=== PATIENT | male | born 1980 | race Caucasian/White ===

== ENCOUNTER 2022-08-15 18:10 | Outpatient (CLI) | payer SELFPAY | END 2022-08-15 18:11 | disposition left against medical advice (07) | LOC: EMS 18:10 | DX: T59.811A Toxic effect of smoke, accidental (unintentional), initial encounter (principal); R05.9 Cough, unspecified; X00.1XXA Exposure to smoke in uncontrolled fire in building or structure, initial encounter ==

== ENCOUNTER 2023-06-12 19:09 | Outpatient (CLI) | payer OTHER, MEDICAID | END 2023-06-12 19:10 | disposition short-term general hospital (02) | LOC: EMS 19:09 | DX: S82.891A Other fracture of right lower leg, initial encounter for closed fracture (principal); S09.93XA Unspecified injury of face, initial encounter; Y04.8XXA Assault by other bodily force, initial encounter; Y92.59 Other trade areas as the place of occurrence of the external cause; R45.6 Violent behavior; Z78.1 Physical restraint status | CPT/HCPCS: A0425; A0427 ==

== ENCOUNTER 2023-06-23 20:01 | Outpatient (CLI) | payer MEDICAID | END 2023-06-23 20:02 | disposition critical access hospital (66) | LOC: EMS 20:01 | DX: T40.2X1A Poisoning by other opioids, accidental (unintentional), initial encounter (principal); R40.0 Somnolence; R11.0 Nausea; R09.89 Other specified symptoms and signs involving the circulatory and respiratory systems | CPT/HCPCS: A0425; A0427; A0999 ==

== ENCOUNTER 2023-06-24 18:12 | Outpatient (CLI) | payer MEDICAID | END 2023-06-24 23:59 | disposition left against medical advice (07) | LOC: EMS 18:12 | DX: R46.4 Slowness and poor responsiveness (principal) ==

== ENCOUNTER 2023-06-26 09:57 | Outpatient (CLI) | payer MEDICAID | END 2023-06-26 23:59 | disposition left against medical advice (07) | LOC: EMS 09:57 | DX: R46.4 Slowness and poor responsiveness (principal); R06.89 Other abnormalities of breathing ==

== ENCOUNTER 2023-08-19 15:04 | Emergency (ER) | payer MEDICAID ==
[2023-08-19 15:18] VITALS: BP 127/82; O2SAT 98
== END 2023-08-19 16:53 | disposition left against medical advice (07) ==
LOC: ED 15:04
DX: Z53.21 Procedure and treatment not carried out due to patient leaving prior to being seen by health care provider (principal)

== ENCOUNTER 2023-12-22 10:09 | Emergency (ER) | payer MEDICAID ==
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
[2023-12-22] MEDS: TRIAMCINOLONE 40 MG/ML VIAL MC STA (11:22)
--- NOTE | 2023-12-22 11:51 | XRAY Report ---
PROCEDURE: Elbow 3+V LT INDICATIONS: elbow pain after injury TECHNIQUE: 3 views of the elbow were acquired. COMPARISON: None. FINDINGS: Bones: Minimal degenerative changes. No acute displaced fracture. Soft tissues: No significant elbow joint effusion. IMPRESSION: No acute radiographic abnormality. If there is high concern for occult injury, consider repeat radiog yosvany or cross-sectional imaging. Reviewed by: Chava Hart MD on 12/22/2023 11:50 AM PDT Approved by: Chava Hart MD on 12/22/2023 11:50 AM PDT Station ID: [id number]
[2023-12-22 12:10] VITALS: BP 148/83; O2SAT 99
== END 2023-12-22 12:06 | disposition home or self-care (01) ==
LOC: ED 10:09
DX: M77.12 Lateral epicondylitis, left elbow (principal); Y04.2XXA Assault by strike against or bumped into by another person, initial encounter
CPT/HCPCS: 20600; 99284

== ENCOUNTER 2024-02-03 21:33 | Outpatient (CLI) | payer MEDICAID | END 2024-02-03 21:34 | disposition left against medical advice (07) | LOC: EMS 21:33 | DX: Z03.89 Encounter for observation for other suspected diseases and conditions ruled out (principal) ==

== ENCOUNTER 2024-02-04 08:11 | Outpatient (CLI) | payer MEDICAID | END 2024-02-04 23:59 | disposition critical access hospital (66) | LOC: EMS 08:11 | DX: R41.82 Altered mental status, unspecified (principal); R06.89 Other abnormalities of breathing; R23.0 Cyanosis; R11.10 Vomiting, unspecified; R61 Generalized hyperhidrosis; R00.0 Tachycardia, unspecified | CPT/HCPCS: A0425; A0433; A0999 ==

== ENCOUNTER 2024-02-04 08:41 | Inpatient (IN) | payer MEDICAID ==
[2024-02-04] MEDS ORDERED: NALOXONE 0.4 MG/ML VIAL ONE (08:47)
[2024-02-04] MEDS: NALOXONE 0.4 MG/ML VIAL IVP STA (08:50)
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
[2024-02-04] MEDS: SODIUM CHLORIDE 0.9% 1,000 ML IV STA (08:55)
[2024-02-04 09:00] LABS: BASOPHILS # (AUTO) 0.1 10^3/uL (0.0-0.1); BASOPHILS % (AUTO) 0.4 %; EOSINOPHILS # (AUTO) 0.1 10^3/uL (0.0-0.7); EOSINOPHILS % (AUTO) 0.6 %; HCT - HEMATOCRIT 49.6 % (42.0-52.0); HGB - HEMOGLOBIN 15.5 g/dL (14.0-18.0); LYMPHOCYTES # (AUTO) 1.5 10^3/uL (1.5-3.5); LYMPHOCYTES % (AUTO) 10.6 %; MEAN CORPUSCULAR HEMOGLOBIN 30.2 pg (27.0-31.0); MEAN CORPUSCULAR HGB CONC 31.3 g/dL (32.0-36.0); MEAN CORPUSCULAR VOLUME 96.7 fL (80.0-94.0); MEAN PLATELET VOLUME 9.7 fL (7.4-11.4); MONOCYTES # (AUTO) 0.2 10^3/uL (0.0-1.0); MONOCYTES % (AUTO) 1.1 %; NEUTROPHILS # (AUTO) 12.3 10^3/uL (1.5-6.6); NEUTROPHILS % (AUTO) 86.2 %; PLT - PLATELET COUNT 291 10^3/uL (130-450); RED BLOOD COUNT 5.13 10^6/uL (4.70-6.10); RED CELL DISTRIBUTION WIDTH 13.2 % (12.0-15.0); WHITE BLOOD COUNT 14.2 x10^3/uL (4.8-10.8)
--- NOTE | 2024-02-04 09:16 | XRAY Report ---
PROCEDURE: Chest 1V INDICATIONS: tube position TECHNIQUE: One view of the chest was acquired. COMPARISON: ET tube in satisfactory position.. FINDINGS: Surgical changes and devices: None. Lungs and pleura: Diffuse bilateral airspace consolidation. Mediastinum: Mediastinal contours appear normal. Cardiomegaly. Bones and chest wall: No suspicious bony lesions. Overlying soft tissues appear unremarkable. IMPRESSION: ET tube in satisfactory position. Congestive heart failure. Reviewed by: Sebastien Quezada MD on 02/04/2024 9:15 AM PDT Approved by: Sebastien Quezada MD on 02/04/2024 9:15 AM PDT Station ID: [id number]
[2024-02-04 09:17] LABS: ABG HCO3 24.2 mmol/L (22.0-26.0); ABG PO2 71 mmHg (80-100); ALLEN TEST POSITIVE
[2024-02-04 09:19] LABS: ABG PH 7.15 (7.35-7.45)
[2024-02-04 09:20] LABS: ABG MODE OF VENTILATION ASSIST/CONTROL; ABG OXYGEN SATURATION 86 % (94-98); ABG PCO2 69 mmHg (34-45); ABG RESPIRATORY RATE 16 b/min
[2024-02-04] MEDS: PROPOFOL 1000 MG/100 ML 1,000 MG/100 ML BOTTLE IV STA (09:21)
[2024-02-04 09:34] LABS: THYROID STIMULATING HORMONE 5.12 uIU/mL (0.34-5.60)
[2024-02-04] MEDS: FUROSEMIDE 40 MG/4 ML VIAL IVP STA (09:35)
[2024-02-04 09:36] LABS: MAGNESIUM 2.5 mg/dL (1.7-2.3)
[2024-02-04 09:39] LABS: BILIRUBIN,URINE NEGATIVE (NEGATIVE); GLUCOSE, URINE (UA) 500 mg/dL (NEGATIVE); KETONES,URINE (UA) NEGATIVE (NEGATIVE); LEUKOCYTE ESTERASE, URINE NEGATIVE (NEGATIVE); NITRITE,URINE NEGATIVE (NEGATIVE); OCCULT BLOOD,URINE NEGATIVE (NEGATIVE); PH,URINE 5.5 PH (5.0-7.5); PROTEIN,URINE NEGATIVE (NEGATIVE); UROBILINOGEN,URINE 0.2 (NORMAL) E.U./dL (NORMAL)
[2024-02-04 09:41] LABS: CLARITY,URINE CLEAR (CLEAR)
[2024-02-04 09:41] LABS: BILIRUBIN,TOTAL 0.6 mg/dL (0.2-1.0); CALCIUM 8.5 mg/dL (8.5-10.3); CARBON DIOXIDE - CO2 27 mmol/L (21-32); CHLORIDE 106 mmol/L (101-111); SODIUM 141 mmol/L (135-145)
[2024-02-04 09:43] LABS: ACETAMINOPHEN 0.5 ug/mL; ALBUMIN/GLOBULIN RATIO 1.5 (1.0-2.2); ALKALINE PHOSPHATASE 64 IU/L (42-121); ALT ALANINE AMINOTRANSFERASE 36 IU/L (10-60); AST ASPARTATE AMINOTRANSFERASE 35 IU/L (10-42); BUN - BLOOD UREA NITROGEN 20 mg/dL (6-20); CK- CREATINE KINASE 86 IU/L (30-223); CREATININE 1.5 mg/dL (0.6-1.3); ETOH - ETHANOL < 10.0 mg/dL; GFR - MDRD 51 (>89); GLUCOSE 363 mg/dL (74-104); LIPASE 26 U/L (11-82); SALICYLATE < 1.5 mg/dL; TOTAL PROTEIN 6.6 g/dL (6.4-8.9)
[2024-02-04 09:48] LABS: AMPHETAMINE SCREEN,URINE NEGATIVE (NEGATIVE); BARBITURATE SCREEN,UR NEGATIVE (NEGATIVE); BENZODIAZEPINES SCREEN, URINE POSITIVE (NEGATIVE); BUPRENORPHINE SCREEN, URINE NEGATIVE (NEGATIVE); COCAINE SCREEN URINE NEGATIVE (NEGATIVE); METHADONE SCREEN, URINE POSITIVE (NEGATIVE); METHAMPHETAMINES SCREEN, URINE NEGATIVE (NEGATIVE); OPIATE SCREEN, URINE NEGATIVE (NEGATIVE); OXYCODONE SCREEN, URINE NEGATIVE (NEGATIVE); THC CANNABINOID SCREEN, URINE POSITIVE (NEGATIVE); TRICYCLIC ANTIDEPRESSANT,URINE NEGATIVE (NEGATIVE)
--- NOTE | 2024-02-04 10:13 | ANESTHESIA PROCEDURE NOTE ---
Anesth Central Line Template - Central Line Central Line Preparation: Unable to obtain consent, Time out completed, Ultra sound used, Sterile prep and drape Central line location: Right IJ Central line type: Triple lumen Central line catheter tip site resides: Superior vena cava (SVC) Central line aftercare: Chlorhexidine disc placed, Secured, Placement confirmed, No pneumothorax, No complications, Bundle checklist complete, Pt tolerated well
--- NOTE | 2024-02-04 10:13 | XRAY Report ---
PROCEDURE: Chest for Line Placement INDICATIONS: new R IJ CVL TECHNIQUE: One view of the chest was acquired. COMPARISON: Chest radiograph 02/04/2024 FINDINGS: Surgical changes and devices: Endotracheal tube in satisfactory position. Right jugular catheter is seen with tip projecting over the superior cavoatrial junction. Lungs and pleura: Bilateral airspace opacities redemonstrated. No definite large pleural effusion or large pneumothorax on this supine exam. Mediastinum: Cardiac silhouette is enlarged. Bones and chest wall: No suspicious bony lesions. Overlying soft tissues appear unremarkable. IMPRESSION: Right internal jugular catheter in satisfactory position. Stable endotracheal tube. Stable pulmonary opacities and cardiomegaly. Reviewed by: Federico Troy MD on 02/04/2024 10:11 AM PDT Approved by: Federico Troy MD on 02/04/2024 10:11 AM PDT Station ID: [id number]
--- NOTE | 2024-02-04 11:03 | CT Report ---
PROCEDURE: Head WO INDICATIONS: AMS TECHNIQUE: Noncontrast 4.5 mm thick angled axial sections acquired from the foramen magnum to the vertex. For r adiation dose reduction, the following was used: automated exposure control, adjustment of mA and/or kV according to patient size. COMPARISON: 10/23/2013. FINDINGS: Image quality: Excellent. CSF spaces: Basal cisterns are patent. No extra-axial fluid collections. Ventricles are normal in size and shape. Brain: No midline shift. No intracranial masses or hemorrhage. Martin-white matter interface is norm al. Skull and face: Calvarium and visualized facial bones are intact, without suspicious lesions. Sinuses: Visualized sinuses and mastoids are clear. IMPRESSION: No acute intracranial pathology. Reviewed by: Sebastien Quezada MD on 02/04/2024 11:02 AM PDT Approved by: Sebastien Quezada MD on 02/04/2024 11:02 AM PDT Station ID: [id number]
[2024-02-04] MEDS: PROMETHAZINE INJ 12.5 MG in SODIUM CHLORIDE 0.9% 50 ML IV STA (11:22)
--- NOTE | 2024-02-04 11:24 | PHARMACY PROGRESS NOTE ---
- Best Possible Medication History Admit Date and Time: Processed by: Pharmacy Medications reviewed in ED?: No Medication History completed: Yes Patient Interview: Pt unable to participate Secondary Source(s): Insurance records As the person ultimately responsible for medication therapy, providers are able to order a medication from an existing home medication list in [facility] via the "Reconcile Routine" prior to Confirmation of that medication by director decision support. Such practice is discouraged except when the physician, in their clinical judgment, deems that a medical need exists for a medication without regard to p revious use.
[2024-02-04] MEDS ORDERED: ONDANSETRON 4 MG/2 ML VIAL IVP PRN (11:44)
[2024-02-04] MEDS: NALOXONE 2 MG in SODIUM CHLORIDE 0.9% 495 ML IV STA (11:45)
--- NOTE | 2024-02-04 12:07 | HISTORY & PHYSICAL EXAMINATION ---
Chief Complaint - Chief Complaint Chief Complaint: Respiratory arrest History of Present Illness - Admitted From Admitted From:: Emergency department - History Obtained From Records Reviewed: Reviewed current ED visit History obtained from: ED attending Dr. Barnes, and patient's mother at the bedside, Dai Exam Limitations: Patient is currently intubated and sedated and unable to contribute to hist - History of Present Illness HPI Comment/Other: Patient is a 43-year-old man with a known PMH of substance abuse primarily involving fentanyl and other opiates who is brought to ED by ambulance having been found unconscious on bed at home by his mother who called 911 and administered Narcan. Shortly after paramedics arrived and initially started CPR due to his unclear whether true pulseless event versus difficult to palpate pulse. In any case, resuscitation efforts were started in the field and he was intubated in the field and brought to the ED Having received multiple doses of Narcan and rounds. Estimated total was approximately 8 mg of Narcan prior to admission. Mother reports that he had an overdose last night for which she administered Narcan which was successful in reviving the patient. Paramedics had still arrived and evaluated the patient but because he was awake and alert and able to refuse, which he did, he was not brought to the ED for further evaluation. Here in the ED, patient again arrived intubated from the field. Mechanical ventilation was continued. Labs were drawn demonstrating lactic acidosis, WBC elevation, mild LILLIE, and ABG consistent with respiratory arrest.Chest x-ray i nitially showed significant pulmonary edema and repeat chest x-ray after central line insertion did show some improvement after 1 dose of Lasix was administered. Head CT showed no acute abnormalities.Further doses of administering Narcan in the ED were not successful and the patient was managed on propofol gtt. while intubated and ICU admission was requested. Discussed the case at length with ED attending Dr. Barnes and agreed for ICU admission. Discussed patient at the bedside with his mother, Dai. History - Past Medical History Cardiovascular: reports: None Respiratory: reports: None Neuro: reports: None Endocrine/Autoimmune: reports: None GI: reports: GERD : reports: None HEENT: reports: None Psych: reports: None Musculoskeletal: reports: None Derm: reports: None MRSA Hx?: No - Past Surgical History Ortho: reports: Other (Right foot pain) - Family & Social History Living arrangement: At home Living Situation: Alone - Substance History Use: Uses substance without health or social issues: Opioid Use Issues: Intoxication Abuse: Recurrent use of substance despite neg consequences: Other (Patient is a recovering alcoholic) Abuse Issues: Other (Patient with history of multiple opiate overdose episodes) - POLST Patient has POLST: No Meds/Allgy - Home Medications Home Medications: Ambulatory Orders Medication Instructions Recorded Confirmed Gabapentin [Neurontin] 300 mg PO TID 12/22/23 02/04/24 Lidocaine Patch 5% [Lidoderm Patch] 1 patch TOP DAILY PRN #10 patch 12/22/23 02/04/24 Meloxicam [Mobic] 7.5 mg PO BID 10 Days #20 tablet 12/22/23 02/04/24 - Allergies Allergies/Adverse Reactions: Allergies Allergy/AdvReac Type Severity Reaction Status Date / Time No Known Drug Allergies Allergy Verified 12/22/23 10:21 Review of Systems - All Other Systems All Other Systems: reports: Other (Unable to assess ROS due to patient sedated and intubated) Prior Level of Functionality: Fully independent Exam - Vital Signs Vital Signs: Vital Signs x48h Temp Pulse Resp BP Pulse Ox 02/04/24 10:56 78 02/04/24 09:32 90 23 143/107 H 92 02/04/24 09:30 89 21 175/157 H 97 02/04/24 09:25 96 24 163/116 H 88 L 02/04/24 09:20 93 21 189/121 H 87 L 02/04/24 09:15 96 17 194/115 H 91 L 02/04/24 09:10 100 16 209/130 H 90 L 02/04/24 09:08 93 16 206/131 H 94 02/04/24 09:00 93 16 171/117 H 94 02/04/24 08:44 35.1 C L 109 H 16 147/97 H 02/04/24 08:42 35.1 C L 51 L 12 147/97 H 89 L - Physical Exam General Appearance: positive: Other (Sedated, intubated) Eyes Bilateral: positive: Other ENT: positive: Dry mucous membranes, Other (Pinpoint pupils bilaterally ET tube in place oral cavity with some dried blood surrounding mouth and nose) Neck: positive: No JVD Respiratory: positive: Rales, Rhonchi, Other (mechanical ventilation) Cardiovascular: positive: Regular rate & rhythm, No murmur, No gallop Peripheral Pulses: positive: 1+ Abdomen: positive: No organomegaly, Nml bowel sounds, No distention Skin: positive: Other (Bilateral lower extremity skin pallor, remainder of skin unremarkable) Extremities: positive: No pedal edema Neurologic/Psychiatric: positive: Other (Sedated, unresponsive, no pain response, pinpoint pupils bilaterally) Sepsis Event Note (H) - Sepsis Criteria Sepsis Criteria: Suspected or Documented, WBC count greater than 12,000 or less than 4000, Metabolic: lactate > 2 mmol/L Conclusion/Plan - Problem List (1) Overdose, drug Conclusion/Plan: Patient is a 43-year-old man brought in by ambulance to the ED after found down by his mother. Status post bystander administered Narcan, paramedics arrived and shortly after started CPR. It is unclear, unknown if patient actually lost pulse or had cardiac arrest, however compressions were indeed initiated and maintained for several minutes according to mother. Patient currently intubated and sedated on propofol. This is despite multiple doses of Narcan. Patient known to have history of fentanyl abuse, however given multiple doses of Narcan, it is uncertain if patient may have had other drugs in his system. Plan is to continue mechanical ventilation, unlikely we will be able to wean off the ventilator today, continue to monitor for neurological signs awake alert and wean ventilator as indicated. (2) Lactic acidosis Conclusion/Plan: Lactic acid is 4.9 in the setting of respiratory arrest. Patient also has LILLIE with creatinine of 1.5. Chest x-ray is suggestive of pulmonary edema. Infection is suspected, possible aspiration pneumonia, however lab abnormalities would also be expected in the setting of respiratory arrest without infection. It is not clear if Lactic acidosis secondary to sepsis versus respiratory arrest alone. Given uncertainty and poor and limited history, will initiate IV antibiotics with Zosyn given risk for aspiration as he was found unconscious. Will administer IV fluids although this must be done judiciously given his pulmonary edema on chest x-ray. Will repeat lactic acid Until normal. (3) LILLIE (acute kidney injury) Conclusion/Plan: Cr 1.5 Likely 2/2 to poor PO intake, as well as possible redistribution of fluids in setting of drug O/D. Will give IVF as above, repeat labs, minimize nephrotoxic meds. (4) Pulmonary edema Conclusion/Plan: Initial chest x-ray showed evidence of pulmonary edema but patient is not known to have any history of CHF or other cardiac disease. Given multiple drug use history, as well as history of alcoholism, cannot rule out cardiomyopathy. Will check echocardiogram. IV fluids administered for lactic acidosis and LILLIE however monitor fluid status judiciously and may need to consider IV Lasix. Continue respiratory support as per above. (5) Respiratory failure Conclusion/Plan: As above, secondary to drug overdose possibly complicated by Aspiration pneumonia. Continue respiratory support with mechanical ventilation, empiric IV antibiotics for suspected possible aspiration pneumonia, and evaluate cardiac function with echocardiogram. - Lab Results Lab results reviewed: Yes Fish Bones: 02/04/24 08:48 02/04/24 08:48 - Diagnostic Imaging Results Diagnostic Imaging Results: positive: Final report reviewed - EKG Results EKG Interpreted Independently: Yes Core Measures - Anticipated LOS I expect patient to be DC'd or transferred within 96 hours.: Yes - DVT/VTE - Prophylaxis VTE/DVT Device ordered at admit?: Yes
--- NOTE | 2024-02-04 12:13 | XRAY Report ---
PROCEDURE: Chest 1V INDICATIONS: change in oxygenation TECHNIQUE: One view of the chest was acquired. COMPARISON: 02/04/2024 at 0954 hours. FINDINGS: Surgical changes and devices: ET tube, NG tube, and central line remain in satisfactory position. Lungs and pleura: No pleural effusions or pneumothorax. Worsening alveolar pulmonary edema. Developm ent of bibasilar atelectasis and bilateral pleural effusions. Mediastinum: Mediastinal contours appear normal. Cardiomegaly. Bones and chest wall: No suspicious bony lesions. Overlying soft tissues appear unremarkable. IMPRESSION: Lines and tubes in satisfactory position. Worsening congestive heart failure, severe. Reviewed by: Sebastien Quezada MD on 02/04/2024 12:11 PM PDT Approved by: Sebastien Quezada MD on 02/04/2024 12:11 PM PDT Station ID: [id number]
[2024-02-04 12:14] LABS: ABG BASE EXCESS -6.3 mmol/L (-2.0-3.0); ABG HCO3 21.4 mmol/L (22.0-26.0); ABG OXYGEN SATURATION 89 % (94-98); ABG PCO2 50 mmHg (34-45); ABG PH 7.25 (7.35-7.45); ABG PO2 59 mmHg (80-100); ABG TCO2 22.9 MMOL/L (21.0-29.0)
[2024-02-04 12:15] LABS: ABG MODE OF VENTILATION ASSIST/CONTROL; ABG RESPIRATORY RATE 16 b/min; ALLEN TEST POSITIVE
[2024-02-04] MEDS: SODIUM CHLORIDE 0.9% 500 ML IV STA (12:30)
[2024-02-04 12:57] LABS: LACTIC ACID, VENOUS 2.1 mmol/L (0.5-2.2)
[2024-02-04] MEDS: PROPOFOL 1000 MG/100 ML 1,000 MG/100 ML BOTTLE IV SCH (12:58)
[2024-02-04] MEDS: PANTOPRAZOLE 40 MG VIAL IVP SCH ×2 (12:59→18:45)
[2024-02-04] MEDS: SODIUM CHLORIDE 0.9% 1,000 ML IV SCH (13:01)
[2024-02-04 13:11] LABS: INR 1.2 (0.8-1.2); PT - PROTHROMBIN TIME 13.1 secs (9.9-12.6)
[2024-02-04] MEDS: PIPERACILLIN/TAZOBACTAM 4.5 GM in SODIUM CHLORIDE 0.9% MINIBAG 100 ML IV SCH (13:16)
[2024-02-04 16:26] LABS: ABG BASE EXCESS -4.2 mmol/L (-2.0-3.0); ABG HCO3 22.1 mmol/L (22.0-26.0); ABG PCO2 45 mmHg (34-45); ABG PH 7.31 (7.35-7.45); ABG PO2 70 mmHg (80-100); ABG TCO2 23.4 MMOL/L (21.0-29.0)
[2024-02-04 16:27] LABS: ABG OXYGEN SATURATION 94 % (94-98); ALLEN TEST POSITIVE
[2024-02-04 16:30] LABS: ABG MODE OF VENTILATION SPONT
[2024-02-04] MEDS: PROPOFOL 200 MG/20 ML VIAL IVP STA (17:22)
[2024-02-04] MEDS: SODIUM CHLORIDE FLUSH 0.9% 10 ML SYRINGE IVP SCH (18:11)
[2024-02-04] MEDS: HEPARIN 5,000 UNIT/ML VIAL SUBQ SCH (21:39)
[2024-02-04] MEDS: CHLORHEXIDINE GLUCONATE 15 ML UDC PO SCH (21:47)
[2024-02-05 04:23] LABS: CALCIUM, IONIZED 1.06 mmol/L (1.15-1.33); VBG PH 7.358 (7.31-7.41)
[2024-02-05 04:31] LABS: BASOPHILS % (AUTO) 0.4 %; HCT - HEMATOCRIT 39.4 % (42.0-52.0); HGB - HEMOGLOBIN 12.9 g/dL (14.0-18.0); LYMPHOCYTES # (AUTO) 0.6 10^3/uL (1.5-3.5); LYMPHOCYTES % (AUTO) 7.8 %; MEAN CORPUSCULAR HEMOGLOBIN 30.5 pg (27.0-31.0); MEAN CORPUSCULAR HGB CONC 32.7 g/dL (32.0-36.0); MEAN CORPUSCULAR VOLUME 93.1 fL (80.0-94.0); MEAN PLATELET VOLUME 9.8 fL (7.4-11.4); MONOCYTES # (AUTO) 0.2 10^3/uL (0.0-1.0); MONOCYTES % (AUTO) 2.4 %; NEUTROPHILS # (AUTO) 7.2 10^3/uL (1.5-6.6); NEUTROPHILS % (AUTO) 89.2 %; PLT - PLATELET COUNT 162 10^3/uL (130-450); RED BLOOD COUNT 4.23 10^6/uL (4.70-6.10); RED CELL DISTRIBUTION WIDTH 13.9 % (12.0-15.0)
[2024-02-05 04:42] LABS: CALCIUM 7.7 mg/dL (8.5-10.3); CREATININE 1.2 mg/dL (0.6-1.3); MAGNESIUM 1.5 mg/dL (1.7-2.3); PHOSPHORUS 4.6 mg/dL (2.5-5.0); POTASSIUM 4.4 mmol/L (3.5-4.5)
[2024-02-05] MEDS: CALCIUM GLUC 1,000MG/50ML-NACL 1,000 MG/50 ML BAG IV ONE (05:11)
[2024-02-05] MEDS: MAGNESIUM SULFATE 2 GRAM 2 GM/50 ML BAG IV ONE (05:31)
[2024-02-05 08:08] LABS: CALCIUM, IONIZED 1.13 mmol/L (1.15-1.33); VBG PH 7.319 (7.31-7.41)
--- NOTE | 2024-02-05 09:32 | XRAY Report ---
PROCEDURE: Chest 1V INDICATIONS: Intubated TECHNIQUE: One view of the chest was acquired. COMPARISON: Several CXR 02/04/2024, 10/24/2013. FINDINGS: Surgical changes and devices: Right IJ central venous line with the catheter tip at the caval atrial junction. Endotracheal tube is been removed. Enteric tube has been removed. Lungs and pleura: No significant pleural effusions. No pneumothorax. Prominent pulmonary markings wi th a central predominance. Mediastinum: Mediastinal contours appear normal. Heart size is prominent. Bones and chest wall: No suspicious bony lesions. Overlying soft tissues appear unremarkable. IMPRESSION: Fluid overload/CHF. Reviewed by: Gorge Marcum MD on 02/05/2024 9:31 AM PDT Approved by: Gorge Marcum MD on 02/05/2024 9:31 AM PDT Station ID: [id number]
[2024-02-05] MEDS: FUROSEMIDE 40 MG/4 ML VIAL IVP SCH (09:58)
--- NOTE | 2024-02-05 15:57 | PROVIDER PROGRESS NOTE ---
Assessment/Plan - Problem List (1) Overdose, drug Assessment/Plan: Patient arrived yesterday with suspected drug overdose having been intubated in the field due to respiratory arrest. He was admitted to the ICU then subsequently extubated several hours later. Spoke with him today trying to assess how much of the episode he was able to remember which was very little. Initially he denied any drug use but later did acknowledge using benzodiazepines that he obtained from a friend. He does not know the original source meaning he is not sure if they came from the pharmacy or off the street. He denies any heroin or other opiate use. Patient continues to be lethargic but is alert, oriented, and is demonstrating improved mental status, able to sit upright, beginning to eat clear liquid diet but still somewhat somnolent. Will continue providing supportive care and when patient is able to, will discuss further possible detox or other rehab services. (2) Lactic acidosis Assessment/Plan: Lactic acidosis has resolved and is likely secondary to respiratory arrest rather than sepsis. (3) LILLIE (acute kidney injury) Assessment/Plan: LILLIE has resolved. Was likely secondary to respiratory arrest and drug overdose. Creatinine normal at 1.2. (4) Pulmonary edema Assessment/Plan: Patient developed pulmonary edema as evidenced by chest x-ray shortly after arrival in the ED. At this improved somewhat after administration of Lasix. Given that it is unknown how long he was unconscious for laying on the bed when he was found by his mother, is uncertain as to the etiology of the pulmonary edema but given his history of polysubstance abuse and remote history of alcoholism, cardiomyopathy cannot be excluded. I have ordered echocardiogram and I am awaiting results. In the meantime we will administer Lasix to continue diuresis. (5) Respiratory failure Assessment/Plan: As above respiratory arrest is suspected to be secondary to drug overdose however given the drug overdose and lack of airway protection with unknown amount of time being unconscious prior to discovery by his family member, cannot exclude aspiration for which he was started on IV Zosyn. He is now more awake and alert and labs have normalized so I will transition him to Augmentin. - Current Meds Current Meds: Current Medications Generic Name Dose Route Start Last Admin Trade Name Freq PRN Reason Stop Dose Admin Chlorhexidine Gluconate 15 ml 02/04/24 21:00 02/05/24 07:58 Chlorhexidine Gluconate 15 Ml Udc PO 15 ml BID FABRICIO Administration Furosemide 40 mg 02/05/24 10:00 02/05/24 09:58 Furosemide 40 Mg/4 Ml Vial IVP 40 mg DAILY FABRICIO Administration Heparin Sodium (Porcine) 5,000 unit 02/04/24 21:00 02/05/24 08:05 Heparin 5,000 Unit/Ml Vial SUBQ 5,000 unit BID FABRICIO Administration Piperacillin Sod/Tazobactam 100 mls @ 200 mls/hr 02/04/24 12:00 02/05/24 12:28 Sod 4.5 gm/ Sodium Chloride IV Infused Q6HR FABRICIO Infusion Pantoprazole Sodium 40 mg 02/04/24 12:00 02/05/24 08:04 Pantoprazole 40 Mg Vial IVP 40 mg BID FABRICIO Administration - Lab Result Lab results reviewed: Yes Fish Bone Diagrams: 02/05/24 04:16 02/05/24 04:16 - Additional Planning Condition/Complexity: Improved My Orders: My Active Orders 02/04/24 16:37 Oxygen [Oxygen Therapy] [RC] .PRN 02/04/24 18:11 Incentive Spirometry - RT [RC] .tid 02/04/24 21:00 Chlorhexidine [Peridex] 15 ml PO BID Heparin [Heparin Sodium (Porcine)] 5,000 unit SUBQ BID 02/05/24 05:00 ABG - ARTERIAL BLOOD GAS [BG] DAILYLAB 02/05/24 09:00 ABG - ARTERIAL BLOOD GAS [BG] DAILY 02/05/24 10:00 FUROSEMIDE INJ 40mg VIAL [LASIX INJ 40 mg VIAL] 40 mg IVP DAILY 02/05/24 Lunch Clear Liquid Diet [DIET] 02/06/24 09:00 ABG - ARTERIAL BLOOD GAS [BG] DAILY 02/07/24 09:00 ABG - ARTERIAL BLOOD GAS [BG] DAILY 02/08/24 09:00 ABG - ARTERIAL BLOOD GAS [BG] DAILY 02/09/24 09:00 ABG - ARTERIAL BLOOD GAS [BG] DAILY Time Spent: 31-60 minutes Subjective - Subjective Patient Reports: Feeling Better Objective Vital Signs: Vital Signs - 24 hr 02/04/24 02/04/24 02/04/24 16:00 16:30 16:37 Temperature 37.5 C Heart Rate [ 99 97 Monitoring electrodes] Respiratory 15 19 Rate Blood Pressure 110/71 109/75 [Right Brachial artery] O2 Saturation 92 93 If not protocol 40 40 40 : Oxygen Flow, liters/minute 02/04/24 02/04/24 02/04/24 17:00 17:30 18:00 Temperature Heart Rate [ 101 H 103 H 101 H Monitoring electrodes] Respiratory 16 14 26 H Rate Blood Pressure 118/74 110/75 124/77 [Right Brachial artery] O2 Saturation 94 94 94 If not protocol 40 : Oxygen Flow, liters/minute 02/04/24 02/04/24 02/04/24 18:13 18:30 18:59 Temperature Heart Rate [ 104 H Monitoring electrodes] Respiratory 17 Rate Blood Pressure 125/67 [Right Brachial artery] O2 Saturation 90 L If not protocol 35 40 40 : Oxygen Flow, liters/minute 02/04/24 02/04/24 02/04/24 19:00 19:30 20:00 Temperature 37.2 C Heart Rate [ 104 H 102 H 104 H Monitoring electrodes] Respiratory 17 12 14 Rate Blood Pressure 128/75 116/77 125/76 [Right Brachial artery] O2 Saturation 93 94 93 If not protocol 40 40 40 : Oxygen Flow, liters/minute 02/04/24 02/04/24 02/04/24 20:30 21:00 21:30 Temperature Heart Rate [ 107 H 104 H 110 H Monitoring electrodes] Respiratory 20 15 27 H Rate Blood Pressure 118/77 125/84 H 132/70 H [Right Brachial artery] O2 Saturation 92 93 93 If not protocol 40 40 40 : Oxygen Flow, liters/minute 02/04/24 02/04/24 02/04/24 22:00 22:30 23:00 Temperature Heart Rate [ 102 H 105 H 103 H Monitoring electrodes] Respiratory 23 20 14 Rate Blood Pressure 127/90 H 121/72 116/83 H [Right Brachial artery] O2 Saturation 91 L 93 92 If not protocol 40 40 40 : Oxygen Flow, liters/minute 02/04/24 02/05/24 02/05/24 23:30 00:00 00:30 Temperature 37.4 C Heart Rate [ 101 H 101 H 98 Monitoring electrodes] Respiratory 13 15 14 Rate Blood Pressure 126/74 131/52 H 100/58 L [Right Brachial artery] O2 Saturation 92 94 94 If not protocol 40 40 40 : Oxygen Flow, liters/minute 02/05/24 02/05/24 02/05/24 01:00 01:30 02:00 Temperature Heart Rate [ 99 100 103 H Monitoring electrodes] Respiratory 15 14 16 Rate Blood Pressure 105/59 L 101/56 L 106/57 L [Right Brachial artery] O2 Saturation 92 93 92 If not protocol 10 10 10 : Oxygen Flow, liters/minute 02/05/24 02/05/24 02/05/24 02:30 03:00 03:30 Temperature Heart Rate [ 102 H 103 H 105 H Monitoring electrodes] Respiratory 16 14 16 Rate Blood Pressure 97/75 117/65 114/67 [Right Brachial artery] O2 Saturation 94 93 93 If not protocol 11 14 14 : Oxygen Flow, liters/minute 02/05/24 02/05/24 02/05/24 04:00 04:30 05:00 Temperature 37.5 C Heart Rate [ 102 H 97 100 Monitoring electrodes] Respiratory 12 12 12 Rate Blood Pressure 129/73 119/71 131/71 H [Right Brachial artery] O2 Saturation 95 96 93 If not protocol 15 14 12 : Oxygen Flow, liters/minute 02/05/24 02/05/24 02/05/24 05:30 06:00 06:30 Temperature Heart Rate [ 100 97 98 Monitoring electrodes] Respiratory 13 13 15 Rate Blood Pressure 127/79 128/84 H 127/80 [Right Brachial artery] O2 Saturation 94 95 95 If not protocol 12 12 12 : Oxygen Flow, liters/minute 02/05/24 02/05/24 02/05/24 07:00 07:30 08:00 Temperature 36.6 C Heart Rate [ 97 94 100 Monitoring electrodes] Respiratory 13 12 13 Rate Blood Pressure 142/80 H 118/63 122/78 [Right Brachial artery] O2 Saturation 95 94 92 If not protocol 12 10 10 : Oxygen Flow, liters/minute 02/05/24 02/05/24 02/05/24 08:30 09:00 09:30 Temperature Heart Rate [ 94 109 H 107 H Monitoring electrodes] Respiratory 15 16 14 Rate Blood Pressure 117/75 152/82 H 116/75 [Right Brachial artery] O2 Saturation 93 92 91 L If not protocol 11 11 11 : Oxygen Flow, liters/minute 02/05/24 02/05/24 02/05/24 10:00 10:30 11:00 Temperature Heart Rate [ 102 H 90 100 Monitoring electrodes] Respiratory 16 13 16 Rate Blood Pressure 116/78 116/78 139/99 H [Right Brachial artery] O2 Saturation 94 92 95 If not protocol 11 6 6 : Oxygen Flow, liters/minute 02/05/24 02/05/24 02/05/24 12:00 13:00 14:00 Temperature 37.1 C Heart Rate [ 110 H 99 96 Monitoring electrodes] Respiratory 27 H 13 18 Rate Blood Pressure 130/92 H 111/76 127/84 H [Right Brachial artery] O2 Saturation 93 97 99 If not protocol 6 6 6 : Oxygen Flow, liters/minute 02/05/24 15:00 Temperature Heart Rate [ 93 Monitoring electrodes] Respiratory 12 Rate Blood Pressure 113/73 [Right Brachial artery] O2 Saturation 96 If not protocol 4 : Oxygen Flow, liters/minute Oxygen O2 Source Nasal cannula I&O (Last 24 Hrs): Intake and Output Totals x24h 02/03/24 02/04/24 02/05/24 23:59 23:59 23:59 Intake Total 2778.64 6529.333 Output Total 3997 2880 Balance -1218.36 3649.333 General: Oriented x3, Cooperative, No acute distress, Other (Patient has varying levels of alertness ranging from somnolent to lethargic but is arousable and oriented and able to communicate) HEENT: Atraumatic, EOMI Neuro: CN 2-12 Grossly Intact Cardiovascular: Regular rate, Normal S1, Normal S2 Respiratory: No respiratory distress, Rales, Rhonchi Abdomen: Normal bowel sounds, Soft, No tenderness Extremities: No clubbing, No cyanosis, No edema Skin: No rashes - Results Results: Laboratory Results WBC 8.0 x10^3/uL (4.8-10.8) 02/05/24 04:16 RBC 4.23 10^6/uL (4.70-6.10) L 02/05/24 04:16 Hgb 12.9 g/dL (14.0-18.0) L 02/05/24 04:16 Hct 39.4 % (42.0-52.0) L 02/05/24 04:16 MCV 93.1 fL (80.0-94.0) 02/05/24 04:16 MCH 30.5 pg (27.0-31.0) 02/05/24 04:16 MCHC 32.7 g/dL (32.0-36.0) 02/05/24 04:16 RDW 13.9 % (12.0-15.0) 02/05/24 04:16 Plt Count 162 10^3/uL (130-450) 02/05/24 04:16 MPV 9.8 fL (7.4-11.4) 02/05/24 04:16 Neut # (Auto) 7.2 10^3/uL (1.5-6.6) H 02/05/24 04:16 Lymph # (Auto) 0.6 10^3/uL (1.5-3.5) L 02/05/24 04:16 [place] # (Auto) 0.2 10^3/uL (0.0-1.0) 02/05/24 04:16 Eos # (Auto) 0.0 10^3/uL (0.0-0.7) 02/05/24 04:16 Baso # (Auto) 0.0 10^3/uL (0.0-0.1) 02/05/24 04:16 Absolute Nucleated RBC 0.00 x10^3/uL 02/05/24 04:16 Nucleated RBC % 0.0 /100WBC 02/05/24 04:16 PT 13.1 secs (9.9-12.6) H 02/04/24 12:30 INR 1.2 (0.8-1.2) 02/04/24 12:30 APTT 26.0 secs (24.9-33.3) 02/04/24 12:30 Bld Gas Analysis Time 1540 02/04/24 15:30 Sample Site RIGHT RADIAL 02/04/24 15:30 ABG pH 7.31 (7.35-7.45) L 02/04/24 15:30 ABG pCO2 45 mmHg (34-45) 02/04/24 15:30 ABG pO2 70 mmHg (80-100) L 02/04/24 15:30 ABG HCO3 22.1 mmol/L (22.0-26.0) 02/04/24 15:30 ABG Total CO2 23.4 MMOL/L (21.0-29.0) 02/04/24 15:30 ABG O2 Saturation 94 % (94-98) 02/04/24 15:30 ABG Base Excess -4.2 mmol/L (-2.0-3.0) L 02/04/24 15:30 Hung Test POSITIVE 02/04/24 15:30 VBG pH 7.319 (7.31-7.41) 02/05/24 08:01 Ionized Calcium 1.13 mmol/L (1.15-1.33) L 02/05/24 08:01 Respiration Rate 16 b/min 02/04/24 11:48 O2 Delivery Device VENTILATOR 02/04/24 15:30 Vent Mode SPONT 02/04/24 15:30 FiO2 60.00 02/04/24 15:30 Tidal Volume 550 mL 02/04/24 11:48 PEEP 5 cmH2O 02/04/24 15:30 Pressure Support Vent 16 cmH2O 02/04/24 15:30 Sodium 144 mmol/L (135-145) 02/05/24 04:16 Potassium 4.4 mmol/L (3.5-4.5) 02/05/24 04:16 Chloride 112 mmol/L (101-111) H 02/05/24 04:16 Carbon Dioxide 27 mmol/L (21-32) 02/05/24 04:16 Anion Gap 5.0 (6-13) L 02/05/24 04:16 BUN 21 mg/dL (6-20) H 02/05/24 04:16 Creatinine 1.2 mg/dL (0.6-1.3) 02/05/24 04:16 Estimated GFR (MDRD) 66 (>89) L 02/05/24 04:16 Glucose 113 mg/dL (74-104) H 02/05/24 04:16 Lactic Acid 1.6 mmol/L (0.5-2.2) 02/04/24 14:14 Calcium 7.7 mg/dL (8.5-10.3) L 02/05/24 04:16 Phosphorus 4.6 mg/dL (2.5-5.0) 02/05/24 04:16 Magnesium 1.9 mg/dL (1.7-2.3) 02/05/24 08:01 Total Bilirubin 0.6 mg/dL (0.2-1.0) 02/04/24 08:48 AST 35 IU/L (10-42) 02/04/24 08:48 ALT 36 IU/L (10-60) 02/04/24 08:48 Alkaline Phosphatase 64 IU/L (42-121) 02/04/24 08:48 Total Creatine Kinase 86 IU/L (30-223) 02/04/24 08:48 Total Protein 6.6 g/dL (6.4-8.9) 02/04/24 08:48 Albumin 4.0 g/dL (3.2-5.5) 02/04/24 08:48 Globulin 2.6 g/dL (2.1-4.2) 02/04/24 08:48 Albumin/Globulin Ratio 1.5 (1.0-2.2) 02/04/24 08:48 Lipase 26 U/L (11-82) 02/04/24 08:48 TSH 5.12 uIU/mL (0.34-5.60) 02/04/24 08:48 Urine Color YELLOW 02/04/24 09:30 Urine Clarity CLEAR (CLEAR) 02/04/24 09:30 Urine pH 5.5 PH (5.0-7.5) 02/04/24 09:30 Ur Specific [place] 1.025 (1.002-1.030) 02/04/24 09:30 Urine Protein NEGATIVE mg/dL (NEGATIVE) 02/04/24 09:30 Urine Glucose (UA) 500 mg/dL (NEGATIVE) H 02/04/24 09:30 Urine Ketones NEGATIVE mg/dL (NEGATIVE) 02/04/24 09:30 Urine Occult Blood NEGATIVE (NEGATIVE) 02/04/24 09:30 Urine Nitrite NEGATIVE (NEGATIVE) 02/04/24 09:30 Urine Bilirubin NEGATIVE (NEGATIVE) 02/04/24 09:30 Urine Urobilinogen 0.2 (NORMAL) E.U./dL (NORMAL) 02/04/24 09:30 Ur Leukocyte Esterase NEGATIVE (NEGATIVE) 02/04/24 09:30 Ur Microscopic Review NOT INDICATED 02/04/24 09:30 Urine Culture Comments NOT INDICATED 02/04/24 09:30 Nasal Screen MRSA (PCR) NEGATIVE (NEGATIVE) 02/04/24 12:28 Salicylates < 1.5 mg/dL 02/04/24 08:48 Urine Opiates Screen NEGATIVE (NEGATIVE) 02/04/24 09:30 Ur Buprenorphine Scrn NEGATIVE (NEGATIVE) 02/04/24 09:30 Ur Oxycodone Screen NEGATIVE (NEGATIVE) 02/04/24 09:30 Urine Methadone Screen POSITIVE (NEGATIVE) H 02/04/24 09:30 Acetaminophen 0.5 ug/mL 02/04/24 08:48 Ur Barbiturates Screen NEGATIVE (NEGATIVE) 02/04/24 09:30 Ur Tricyclics Screen NEGATIVE (NEGATIVE) 02/04/24 09:30 Ur Phencyclidine Scrn NEGATIVE (NEGATIVE) 02/04/24 09:30 Ur Amphetamine Screen NEGATIVE (NEGATIVE) 02/04/24 09:30 U Methamphetamines Scrn NEGATIVE (NEGATIVE) 02/04/24 09:30 U Benzodiazepines Scrn POSITIVE (NEGATIVE) H 02/04/24 09:30 Urine Cocaine Screen NEGATIVE (NEGATIVE) 02/04/24 09:30 U Cannabinoids Screen POSITIVE (NEGATIVE) H 02/04/24 09:30 Ur Drug Screen Comment CUTOFF CONC BELOW: 02/04/24 09:30 Ethyl Alcohol < 10.0 mg/dL 02/04/24 08:48 SARS-CoV-2 (PCR) NOT DETECTED 02/04/24 09:30 - Procedures Procedures: Procedures CONTINUOUS INVASIVE MECHANICAL VENTILATION <96 CONSEC HRS (10/24/13) INSERT ENDOTRACHEAL TUBE (10/24/13) Sepsis Event Note (H) - Sepsis Criteria Sepsis Criteria: Suspected or Documented, WBC count greater than 12,000 or less than 4000, Metabolic: lactate > 2 mmol/L ABX Reporting Has patient been on IV antibiotics over the past 48 hours?: Yes Current Medications - Current Medications Current Medications: Allergies No Known Drug Allergies Allergy (Verified 12/22/23 10:21) Home Medications Gabapentin [Neurontin] 300 mg PO TID 12/22/23 Lidocaine Patch 5% [Lidoderm Patch] 1 patch TOP DAILY PRN #10 patch 12/22/23 Meloxicam [Mobic] 7.5 mg PO BID 10 Days #20 tablet 12/22/23 Active Medications Chlorhexidine Gluconate (Chlorhexidine Gluconate 15 Ml Udc) 15 ml PO BID [facility] Last Admin: 02/05/24 07:58 Dose: 15 ml Furosemide (Furosemide 40 Mg/4 Ml Vial) 40 mg IVP DAILY FABRICIO Last Admin: 02/05/24 09:58 Dose: 40 mg Heparin Sodium (Porcine) (Heparin 5,000 Unit/Ml Vial) 5,000 unit SUBQ BID FABRICIO Last Admin: 02/05/24 08:05 Dose: 5,000 unit Piperacillin Sod/Tazobactam (Sod 4.5 gm/ Sodium Chloride) 100 mls @ 200 mls/hr IV Q6HR [facility] Last Infusion: 02/05/24 12:28 Dose: Infused Ondansetron HCl (Ondansetron 4 Mg/2 Ml Vial) 4 mg IVP Q6HR PRN PRN Reason: Nausea / Vomiting Pantoprazole Sodium (Pantoprazole 40 Mg Vial) 40 mg IVP BID [facility] Last Admin: 02/05/24 08:04 Dose: 40 mg Sodium Chloride (Sodium Chloride Flush 0.9% 10 Ml Syringe) 10 ml IVP PRN PRN PRN Reason: NEEDED PER PROVIDER ORDERS
[2024-02-05] MEDS: IBUPROFEN 600 MG TABLET PO PRN (20:48)
[2024-02-05] MEDS: SODIUM CHLORIDE FLUSH 0.9% 10 ML SYRINGE IVP PRN (20:49)
[2024-02-05] MEDS ORDERED: BENZOCAINE/MENTHOL LOZENGE MM PRN (22:46)
[2024-02-05] MEDS: PHENOL THROAT SPRAY 177 ML MM PRN (23:01)
[2024-02-06 06:11] LABS: CALCIUM, IONIZED 1.15 mmol/L (1.15-1.33); VBG PH 7.334 (7.31-7.41)
[2024-02-06 06:17] LABS: MAGNESIUM 1.9 mg/dL (1.7-2.3); PHOSPHORUS 2.4 mg/dL (2.5-5.0)
[2024-02-06 06:58] LABS: POTASSIUM 3.9 mmol/L (3.5-4.5)
[2024-02-06 07:05] VITALS: BP 112/78; O2SAT 95
[2024-02-06] MEDS ORDERED: NEUTRA-PHOS 250 MG TABLET PO SCH (08:00)
--- NOTE | 2024-02-06 09:34 | Discharge Plan ---
Discharge Plan Problem Reviewed?: Yes Disposition: 07 Against Medical Advice Condition: Fair Prescriptions: Amox/Clav 875/125 [Augmentin 875/125 Tab] 1 tablet PO Q12H 10 Days #20 tablet Activity Restrictions: No driving or heavy machi Shower Restrictions: Yes Driving Restrictions: Yes No Smoking: If you smoke, Please STOP! Call for help.
--- NOTE | 2024-02-06 10:36 | DISCHARGE SUMMARY ---
"Discharge Summary Admit Date: 02/04/24 Discharge Date: 02/06/24 Discharging Provider: Francisco Javier Barron MD Code Status: Attempt Resuscitation Condition at Discharge: Fair Discharge Disposition: 07 Against Medical Advice - DIAGNOSES Admission Diagnoses: Drug overdose Lactic acidosis Acute respiratory failure with hypoxia requiring mechanical ventilation LILLIE Pulmonary edema Discharge Diagnoses with Status of Each Condition: Acute respiratory failure with hypoxiaimproved Pulmonary edemaunknown AKIresolved Lactic acidosisresolved - HPI History of Present Illness: Patient is a 43-year-old man with a known PMH of substance abuse primarily involving fentanyl and other opiates who is brought to ED by ambulance having been found unconscious on bed at home by his mother who called 911 and administered Narcan. Shortly after paramedics arrived and initially started CPR due to his unclear whether true pulseless event versus difficult to palpate pulse. In any case, resuscitation efforts were started in the field and he was intubated in the field and brought to the ED Having received multiple doses of Narcan and rounds. Estimated total was approximately 8 mg of Narcan prior to admission. Mother reports that he had an overdose last night for which she administered Narcan which was successful in reviving the patient. Paramedics had still arrived and evaluated the patient but because he was awake and alert and able to refuse, which he did, he was not brought to the ED for further evaluation. Here in the ED, patient again arrived intubated from the field. Mechanical ventilation was continued. Labs were drawn demonstrating lactic acidosis, WBC elevation, mild LILLIE, and ABG consistent with respiratory arrest.Chest x-ray initially showed significant pulmonary edema and repeat chest x-ray after centra l line insertion did show some improvement after 1 dose of Lasix was administered. Head CT showed no acute abnormalities.Further doses of administering Narcan in the ED were not successful and the patient was managed on propofol gtt. while intubated and ICU admission was requested. Discussed the case at length with ED attending Dr. Barnes and agreed for ICU admission. Discussed patient at the bedside with his mother, Dai. - CONSULTS | PROCEDURES Procedures: Intubation with mechanical ventilation - HOSPITAL COURSE Hospital Course: Patient was admitted to the ICU on mechanical ventilator. Within several hours on the day of admission his respiratory status improved and he was able to be successfully extubated. He did however remain hypersomnolent and lethargic over the next 24 to 36 hours. He also remained hypoxic with diminishing oxygen requirements. An echocardiogram was obtained which at the time of discharge has not been reported. On 02/06/2024 the patient became frustrated in the casting agent hours and insisted on leaving AGAINST MEDICAL ADVICE. He remained hypoxic, was self removing nasal cannula and was about to remove his own IV line and IJ when the nurse was able to convince him to wait and speak to the physician. After speaking with the patient at length about the risks of discharging while still hypoxic with an unknown cardiac status, patient continued to insist on leaving due to concerns about missing work. I reminded the patient that he will miss a much greater deal of work if his health deteriorates but this was not successful in changing his mind. Because he denied any suicidality or depression, I could not hold the patient against as well and therefore he was offered to sign the paperwork to leave AGAINST MEDICAL ADVICE which she did. Because of the lack of clarity regarding his pulmonary edema and initial presentation with leukocytosis and lactic acidosis, he was treated with IV Zosyn in the hospital and when he left AMA this was converted to a prescription for Augmentin and the patient was advised to complete this course of antibiotics. - ALLERGIES Allergies/Adverse Reactions: Allergies Allergy/AdvReac Type Severity Reaction Status Date / Time No Known Drug Allergies Allergy Verified 12/22/23 10:21 - MEDICATIONS Home Medications: Ambulatory Orders Medication Instructions Recorded Confirmed Lidocaine Patch 5% [Lidoderm Patch] 1 patch TOP DAILY PRN #10 patch 12/22/23 02/04/24 Meloxicam [Mobic] 7.5 mg PO BID 10 Days #20 tablet 12/22/23 02/04/24 Amox/Clav 875/125 [Augmentin 1 tablet PO Q12H 10 Days #20 tablet 02/06/24 875/125 Tab] - PHYSICAL EXAM AT DISCHARGE General Appearance: positive: Anxious Eyes Bilateral: positive: Normal inspection Respiratory: positive: No respiratory distress Neurologic/Psychiatric: positive: Oriented x3 - LABS Result Diagrams: 02/05/24 04:16 02/06/24 05:30 - DIAGNOSTIC IMAGING Diagnostic Imaging Results Comments: Echocardiogram was Completed however not read at the time of AMA discharge. - SEPSIS Sepsis Criteria: Suspected or Documented, WBC count greater than 12,000 or less than 4000, Metabolic: lactate > 2 mmol/L - FOLLOW UP Follow Up: PCP - TIME SPENT Time Spent in Discharge (Minutes): 60"
== END 2024-02-06 09:20 | disposition left against medical advice (07) | DRG 208 ==
LOC: EDUNIT# → ED 08:41 → ICU 11:44
PROVIDERS: ADMIT Family Medicine Sports Medicine; ATTEND Family Medicine Sports Medicine
PROC: 02HV33Z Insertion of Infusion Device into Superior Vena Cava, Percutaneous Approach (ICD-10-PCS; principal; 2024-02-04)
PROC: 5A1935Z Respiratory Ventilation, Less than 24 Consecutive Hours (ICD-10-PCS; 2024-02-04)
PROC: 5A0935A Assistance with Respiratory Ventilation, Less than 24 Consecutive Hours, High Flow/Velocity Cannula (ICD-10-PCS; 2024-02-04)
DX: J96.01 Acute respiratory failure with hypoxia (principal); J69.0 Pneumonitis due to inhalation of food and vomit; N17.9 Acute kidney failure, unspecified; E87.20 Acidosis, unspecified; J81.1 Chronic pulmonary edema; D72.829 Elevated white blood cell count, unspecified; R40.0 Somnolence; R53.83 Other fatigue; F11.10 Opioid abuse, uncomplicated; T40.411A Poisoning by fentanyl or fentanyl analogs, accidental (unintentional), initial encounter; F10.21 Alcohol dependence, in remission; Z11.52 Encounter for screening for COVID-19; Z79.899 Other long term (current) drug therapy
CPT/HCPCS: 36415; 36600; 70450; 71045; 80048; 80053; 80143; 80179; 80306; 81003; 82077; 82330; 82550; 82803; 83605; 83690; 83735; 84100; 84132; 84295; 84443; 85025; 85610; 85730; 87040; 87150; 87635; 93005; 93307; 94002; A9270; J7040; 81001; 87086

== ENCOUNTER 2024-04-22 17:43 | Emergency (ER) | payer MEDICAID ==
[2024-04-22 17:57] VITALS: BP 233/175; O2SAT 98
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
== END 2024-04-22 18:10 | disposition home or self-care (01) ==
LOC: EDUNIT# → ED 17:43
DX: Z00.8 Encounter for other general examination (principal); F10.129 Alcohol abuse with intoxication, unspecified
CPT/HCPCS: 99281; 99282

== ENCOUNTER 2024-04-27 16:00 | Outpatient (CLI) | payer MEDICAID | END 2024-04-27 23:59 | disposition critical access hospital (66) | LOC: EMS 16:00 | DX: R07.81 Pleurodynia (principal) | CPT/HCPCS: A0425; A0429; A0999 ==

== ENCOUNTER 2024-04-27 16:31 | Emergency (ER) | payer MEDICAID ==
[2024-04-27 17:08] LABS: BILIRUBIN,URINE NEGATIVE (NEGATIVE); GLUCOSE, URINE (UA) NEGATIVE (NEGATIVE); KETONES,URINE (UA) NEGATIVE (NEGATIVE); LEUKOCYTE ESTERASE, URINE NEGATIVE (NEGATIVE); NITRITE,URINE NEGATIVE (NEGATIVE); OCCULT BLOOD,URINE NEGATIVE (NEGATIVE); PH,URINE 7.5 PH (5.0-7.5); PROTEIN,URINE TRACE mg/dL (NEGATIVE); UROBILINOGEN,URINE 0.2 (NORMAL) E.U./dL (NORMAL)
[2024-04-27 17:11] LABS: CLARITY,URINE CLEAR (CLEAR)
[2024-04-27] MEDS: KETOROLAC 30 MG/ML VIAL IM STA (17:21)
[2024-04-27 17:22] LABS: AMPHETAMINE SCREEN,URINE NEGATIVE (NEGATIVE); BARBITURATE SCREEN,UR NEGATIVE (NEGATIVE); BENZODIAZEPINES SCREEN, URINE NEGATIVE (NEGATIVE); BUPRENORPHINE SCREEN, URINE NEGATIVE (NEGATIVE); COCAINE SCREEN URINE NEGATIVE (NEGATIVE); METHADONE SCREEN, URINE NEGATIVE (NEGATIVE); METHAMPHETAMINES SCREEN, URINE NEGATIVE (NEGATIVE); OPIATE SCREEN, URINE NEGATIVE (NEGATIVE); OXYCODONE SCREEN, URINE NEGATIVE (NEGATIVE); THC CANNABINOID SCREEN, URINE POSITIVE (NEGATIVE); TRICYCLIC ANTIDEPRESSANT,URINE NEGATIVE (NEGATIVE)
[2024-04-27] MEDS: ACETAMINOPHEN 500 MG TABLET PO STA (17:22)
[2024-04-27 17:25] LABS: BASOPHILS # (AUTO) 0.1 10^3/uL (0.0-0.1); BASOPHILS % (AUTO) 0.7 %; EOSINOPHILS % (AUTO) 0.3 %; HCT - HEMATOCRIT 42.1 % (42.0-52.0); HGB - HEMOGLOBIN 14.8 g/dL (14.0-18.0); LYMPHOCYTES # (AUTO) 1.3 10^3/uL (1.5-3.5); LYMPHOCYTES % (AUTO) 19.8 %; MEAN CORPUSCULAR HEMOGLOBIN 32.3 pg (27.0-31.0); MEAN CORPUSCULAR HGB CONC 35.2 g/dL (32.0-36.0); MEAN CORPUSCULAR VOLUME 91.9 fL (80.0-94.0); MEAN PLATELET VOLUME 8.8 fL (7.4-11.4); MONOCYTES # (AUTO) 0.4 10^3/uL (0.0-1.0); MONOCYTES % (AUTO) 5.8 %; NEUTROPHILS % (AUTO) 73.3 %; PLT - PLATELET COUNT 233 10^3/uL (130-450); RED BLOOD COUNT 4.58 10^6/uL (4.70-6.10); RED CELL DISTRIBUTION WIDTH 13.2 % (12.0-15.0); WHITE BLOOD COUNT 6.8 x10^3/uL (4.8-10.8)
--- NOTE | 2024-04-27 17:25 | ED Physician Documentation ---
History of Present Illness - Stated complaint Stated Complaint: RIB PX - Chief complaint Chief Complaint: Trauma Ext - Additonal information Additional information: 44-year-old male with history of alcohol dependence Patient was here on 04/22 and was taken down by police that day he has been experiencing left anterior rib pain and left hip pain since then. He went to check into [facility] today for alcohol withdrawal and they sent him here to the emergency department for further evaluation. No nausea or vomiting last alcoholic beverage was 2 beers today says he normally drinks a lot more than that. Denies any illicit drug use said last IV drug use was in 2019. PD PAST MEDICAL HISTORY - Past Medical History Cardiovascular: None Respiratory: None Neuro: None Endocrine/Autoimmune: None GI: GERD : None HEENT: None Psych: None Musculoskeletal: None Derm: None - Past Surgical History Past Surgical History: Yes Ortho: Other - Present Medications Home Medications: Ambulatory Orders Medication Instructions Recorded Confirmed Lidocaine Patch 5% [Lidoderm Patch] 1 patch TOP DAILY PRN #10 patch 12/22/23 02/04/24 Meloxicam [Mobic] 7.5 mg PO BID 10 Days #20 tablet 12/22/23 02/04/24 Amox/Clav 875/125 [Augmentin 1 tablet PO Q12H 10 Days #20 tablet 02/06/24 875/125 Tab] - Allergies Allergies/Adverse Reactions: Allergies Allergy/AdvReac Type Severity Reaction Status Date / Time No Known Drug Allergies Allergy Verified 04/27/24 16:48 - Social History Does the pt smoke?: No Smoking Status: Never smoker Does the pt drink ETOH?: Yes Does the pt have substance abuse?: Yes - Immunizations Immunizations are current?: No Immunizations: TDAP >10years/unknown - POLST Patient has POLST: No PD ED PE NORMAL - Vitals Vital signs reviewed: Yes - General General: Alert and oriented X 3, No acute distress, Well developed/nourished, Other (tremors) - HEENT HEENT: Atraumatic - Neck Neck: No bony TTP, C-Spine cleared by NEXUS criteria - Cardiac Cardiac: RRR, No murmur - Respiratory Respiratory: No respiratory distress, Clear bilaterally - Back Back: Other (left anterior rib pain) - Derm Derm: Normal color, Warm and dry, No rash - Psych Psych: Normal mood, Normal affect Results - Vitals Vitals: Vital Signs - 24 hr 04/27/24 04/27/24 16:32 19:30 Temperature 36.9 C Heart Rate 109 H 88 Respiratory 20 Rate Blood Pressure 199/126 H 162/109 H O2 Saturation 99 99 Oxygen O2 Source Room air - Labs Labs: Laboratory Tests 04/27/24 04/27/24 04/27/24 17:00 17:20 17:20 WBC 6.8 RBC 4.58 L Hgb 14.8 Hct 42.1 MCV 91.9 MCH 32.3 H MCHC 35.2 RDW 13.2 Plt Count 233 MPV 8.8 Neut # (Auto) 5.0 Lymph # (Auto) 1.3 L [place] # (Auto) 0.4 Eos # (Auto) 0.0 Baso # (Auto) 0.1 Absolute Nucleated RBC 0.00 Nucleated RBC % 0.0 Sodium 139 Potassium 3.6 Chloride 102 Carbon Dioxide 28 Anion Gap 9.0 BUN 13 Creatinine 0.7 Estimated GFR (MDRD) 123 Glucose 100 Calcium 9.3 Magnesium 1.6 L Total Bilirubin 0.9 AST 32 ALT 22 Alkaline Phosphatase 82 Troponin I High Sens Total Protein 6.9 Albumin 4.2 Globulin 2.7 Albumin/Globulin Ratio 1.6 Lipase 53 Urine Color DARK YELLOW Urine Clarity CLEAR Urine pH 7.5 Ur Specific [place] 1.020 Urine Protein TRACE Urine Glucose (UA) NEGATIVE Urine Ketones NEGATIVE Urine Occult Blood NEGATIVE Urine Nitrite NEGATIVE Urine Bilirubin NEGATIVE Urine Urobilinogen 0.2 (NORMAL) Ur Leukocyte Esterase NEGATIVE Ur Microscopic Review NOT INDICATED Urine Culture Comments NOT INDICATED Urine Opiates Screen NEGATIVE Ur Buprenorphine Scrn NEGATIVE Ur Oxycodone Screen NEGATIVE Urine Methadone Screen NEGATIVE Ur Barbiturates Screen NEGATIVE Ur Tricyclics Screen NEGATIVE Ur Phencyclidine Scrn NEGATIVE Ur Amphetamine Screen NEGATIVE U Methamphetamines Scrn NEGATIVE U Benzodiazepines Scrn NEGATIVE Urine Cocaine Screen NEGATIVE U Cannabinoids Screen POSITIVE H Ur Drug Screen Comment CUTOFF CONC BELOW: Ethyl Alcohol 21.7 04/27/24 17:20 WBC RBC Hgb Hct MCV MCH MCHC RDW Plt Count MPV Neut # (Auto) Lymph # (Auto) [place] # (Auto) Eos # (Auto) Baso # (Auto) Absolute Nucleated RBC Nucleated RBC % Sodium Potassium Chloride Carbon Dioxide Anion Gap BUN Creatinine Estimated GFR (MDRD) Glucose Calcium Magnesium Total Bilirubin AST ALT Alkaline Phosphatase Troponin I High Sens 11.3 Total Protein Albumin Globulin Albumin/Globulin Ratio Lipase Urine Color Urine Clarity Urine pH Ur Specific [place] Urine Protein Urine Glucose (UA) Urine Ketones Urine Occult Blood Urine Nitrite Urine Bilirubin Urine Urobilinogen Ur Leukocyte Esterase Ur Microscopic Review Urine Culture Comments Urine Opiates Screen Ur Buprenorphine Scrn Ur Oxycodone Screen Urine Methadone Screen Ur Barbiturates Screen Ur Tricyclics Screen Ur Phencyclidine Scrn Ur Amphetamine Screen U Methamphetamines Scrn U Benzodiazepines Scrn Urine Cocaine Screen U Cannabinoids Screen Ur Drug Screen Comment Ethyl Alcohol - Rads (name of study) Pelvis 2 view Relevant Findings:: Final report received, EMP independent interpretation of test, Other (No acute fracture or dislocation of the pelvis or left hip) Ribs with PA chest Relevant Findings:: Final report received, EMP independent interpretation of test, Other (Acute minimally displaced fracture of the third lateral rib) PD Medical Decision Making - ED course ED course: 44-year-old male presents emergency department for left anterior rib pain and left hip pain with contusion. Labs are complete for further evaluation no leukocytosis no anemia no electrolyte abnormalities aside from very mild hypomagnesemia, magnesium was replaced with 400 mg magnesium oxide and he was also given supplemental thiamine for his alcohol dependence. Urinalysis is also unremarkable including urine drug screen only positive for cannabinoids. Alcohol level is 21.7. Chest x-ray as well as pelvis x-ray were complete for further evaluation pelvis x-ray does not reveal any acute fractures or dislocations. Chest x-ray does reveal acute minimally displaced fracture at the third lateral rib pain was controlled with lidocaine patch, Toradol injection, Tylenol. He is safe to discharge back to [facility] Departure - Departure Disposition: 01 Home, Self Care Clinical Impression: Rib fracture Qualifiers: Encounter type: initial encounter Rib fracture type: single rib Fracture type: closed Laterality: left Qualified Code(s): S22.32XA - Fracture of one rib, left side, initial encounter for closed fracture Contusion of hip, left Qualifiers: Encounter type: initial encounter Qualified Code(s): S70.02XA - Contusion of left hip, initial encounter Instructions: ED Fx Rib Comments: Thank you for trusting us with your care. You have a minimally displaced fracture of the third left rib. You can take Tylenol ibuprofen for pain or discomfort and make sure that you are taking deep breaths to run from pneumonia. Forms: PCP List
[2024-04-27 17:37] LABS: MAGNESIUM 1.6 mg/dL (1.7-2.3)
[2024-04-27 17:44] LABS: ALBUMIN 4.2 g/dL (3.2-5.5); ALBUMIN/GLOBULIN RATIO 1.6 (1.0-2.2); BILIRUBIN,TOTAL 0.9 mg/dL (0.2-1.0); CALCIUM 9.3 mg/dL (8.5-10.3); CREATININE 0.7 mg/dL (0.6-1.3); ETOH - ETHANOL 21.7 mg/dL; POTASSIUM 3.6 mmol/L (3.5-4.5); TOTAL PROTEIN 6.9 g/dL (6.4-8.9)
--- NOTE | 2024-04-27 17:54 | XRAY Report ---
PROCEDURE: Ribs w/PA Chest 3+V LT INDICATIONS: SEVERE RIB PAIN AFTER TRAUMA TECHNIQUE: 2 views of the ribs were acquired, along with a single view chest. COMPARISON: Chest x-ray 02/05/2024 FINDINGS: The heart size and cardiomediastinal silhouette are within normal limits. There is no focal lung cons olidation, pneumothorax, or pleural effusion. Acute, minimally displaced fracture of the 3rd lateral rib. No other acute, displaced rib fractures. IMPRESSION: 1.Acute minimally displaced fracture of the 3rd lateral rib. 2.Otherwise, no acute cardiothoracic process. Reviewed by: Sesar Montalvo MD on 04/27/2024 5:52 PM PDT Approved by: Sesar Montalvo MD on 04/27/2024 5:52 PM PDT Station ID: [id number]
--- NOTE | 2024-04-27 17:55 | XRAY Report ---
PROCEDURE: Hip w/Pelvis 2-3V LT INDICATIONS: SEVERE LEFT HIP PAIN TECHNIQUE: AP view of the pelvis, frog-leg view of the left hip COMPARISON: None. FINDINGS: No acute fracture or dislocation. No pelvic ring disruption. The hip joints, sacroiliac joints, and p ubic symphysis are preserved. IMPRESSION: No acute fracture or dislocation of the pelvis or left hip. Reviewed by: Sesar Montalvo MD on 04/27/2024 5:54 PM PDT Approved by: Sesar Montalvo MD on 04/27/2024 5:54 PM PDT Station ID: [id number]
[2024-04-27] MEDS ORDERED: THIAMINE 100 MG TABLET PO STA (18:19)
[2024-04-27] MEDS: THIAMINE 100 MG TABLET PO STA (19:16)
[2024-04-27] MEDS: MAGNESIUM OXIDE 400 MG TABLET PO STA (19:16)
[2024-04-27] MEDS: LIDOCAINE PATCH 4% TOP STA (19:45)
[2024-04-27 20:56] VITALS: BP 166/74; O2SAT 98
== END 2024-04-27 20:49 | disposition home or self-care (01) ==
LOC: EDUNIT# → ED 16:31
DX: E83.42 Hypomagnesemia (principal); S22.31XA Fracture of one rib, right side, initial encounter for closed fracture; S70.02XA Contusion of left hip, initial encounter; Y35.813A Legal intervention involving manhandling, suspect injured, initial encounter; Y93.89 Activity, other specified; F10.20 Alcohol dependence, uncomplicated; Y90.1 Blood alcohol level of 20-39 mg/100 ml
CPT/HCPCS: 36415; 71101; 73502; 80053; 80306; 81003; 82077; 83690; 83735; 84484; 85025; 93005; 96372; 99284; A9270; 81001; 87086